=== PATIENT | female | born 1970 | race Caucasian/White ===

== ENCOUNTER 2020-06-09 18:12 | Emergency (ER) | payer MEDICAID ==
[~2020-06-09] VITALS: Ht 162.6 cm; Wt 58.0 kg
[2020-06-09 18:15] VITALS: BP 112/64
--- NOTE | 2020-06-09 18:34 | NUR ---
SEE TRIAGE NOTE. PT REPORTS OF CHRONIC "RED AND GREEN" VAG DISCHARGE. SEEN MULTIPLE TIMES AT [facility] FOR SAME. PT DENIES DYSURIA. PT ALSO REPORTS OF "SMOKING CIGARETTES, WEED, AND SPEED". PT WITH PRESSURED SPEECH, BEHAVIOR INAPPROPRIATE TO SITUATION BUT COOPERATIVE WITH CARE AT THIS TIME.
[2020-06-09] MEDS ORDERED: LORazepam 1MG TABLET ONE (18:43)
--- NOTE | 2020-06-09 18:51 | NUR ---
PT MEDICATED PER ERP ORDER FOR ITCHING AND ANXIETY. BP CUFF, PULSE OX IN PLACE. PT MOVED TO MINE [employer] BED, PELVIC SET UP BY SNOW REMOVAL SUPERVISOR.
--- NOTE | 2020-06-09 18:58 | NUR ---
Quintin au in [facility] - 06/09/20 at 1900 by PATRICIO REPORT RECEIVED FROM AYALA RENEE
[2020-06-09] MEDS ORDERED: LORazepam 1MG TABLET PO ONE (19:00)
--- NOTE | 2020-06-09 19:00 | NUR ---
REPORT RECIEVED FROM AYALA RENEE
[2020-06-09] MEDS ORDERED: FLUCONAZOLE 100 MG TABLET ONE (20:04)
--- NOTE | 2020-06-09 20:14 | NUR ---
PT REQUESTING DIFLUCAN TO BE GIVEN HERE, DR OCHOA OKAY WITH GIVING 150 MG DIFLUCAN PO NOW. VERBAL ORDER REPEATED.
[2020-06-09] MEDS ORDERED: FLUCONAZOLE 100 MG TABLET PO ONE (20:30)
== END 2020-06-09 20:20 | disposition home or self-care (01) ==
LOC: ED 20:05
DX: A60.04 Herpesviral vulvovaginitis (principal); N76.0 Acute vaginitis; F15.10 Other stimulant abuse, uncomplicated; Z72.9 Problem related to lifestyle, unspecified
CPT/HCPCS: 99284; Q0177

== ENCOUNTER 2020-09-28 16:12 | Emergency (ER) | payer MEDICAID ==
[~2020-09-28] VITALS: Ht 162.6 cm; Wt 58.8 kg
[2020-09-28 16:20] VITALS: BP 111/60
[2020-09-28 17:52] LABS: BASOPHILS % (AUTO) 1 % (0-1); EOSINOPHILS % (AUTO) 2 % (1-7); LYMPHOCYTES % (AUTO) 26 % (22-44); MEAN CORPUSCULAR HEMOGLOBIN 30.1 pg (27.0-34.8); MEAN CORPUSCULAR HGB CONC 33.3 g/dL (32.4-35.8); MEAN PLATELET VOLUME 7.9 fL (7.4-10.4); MONOCYTES % (AUTO) 7 % (2-9); NEUTROPHILS % (AUTO) 64 % (42-75); PLATELET COUNT 458 x10^3/uL (130-400); RED BLOOD COUNT 3.96 x10^6/uL (3.82-5.3); RED CELL DISTRIBUTION WIDTH 16.8 % (9.6-15.2)
[2020-09-28 18:04] LABS: ALBUMIN 3.5 g/dL (3.4-5.0); ANION GAP 4 mmol/L (5-15); CALCIUM 9.2 mg/dL (8.5-10.1); CHLORIDE 107 mmol/L (98-107); CREATININE 0.86 mg/dL (0.55-1.02)
--- NOTE | 2020-09-28 19:29 | NUR ---
pt presents to the ed with vaginal bleeding. pt states she has had 4 period like vaginal bleeding episodes this month. pt states she has had this bleeding since she had a bee stinger removed. pt resting on [place].
--- NOTE | 2020-09-28 20:10 | NUR ---
Patient given discharge instructions and they have confirmed that they understand the instructions. Patient ambulatory with steady gait.
== END 2020-09-28 20:51 | disposition home or self-care (01) ==
LOC: ED 19:45
DX: N93.8 Other specified abnormal uterine and vaginal bleeding (principal); D25.9 Leiomyoma of uterus, unspecified; F17.210 Nicotine dependence, cigarettes, uncomplicated
CPT/HCPCS: 36415; 76830; 80048; 82040; 84703; 85025; 99284; 99406

== ENCOUNTER 2020-11-25 21:16 | Emergency (ER) | payer MEDICAID ==
[~2020-11-25] VITALS: Ht 162.6 cm; Wt 59.3 kg
[2020-11-25] MEDS ORDERED: MAALOX/HYOSCYAMINE/LIDOCAINE 45 ML BTL PO ONE (21:30)
[2020-11-25] MEDS ORDERED: ONDANSETRON ODT 4 MG PO ONE (21:30)
[2020-11-25] MEDS ORDERED: FAMOTIDINE 20 MG TABLET PO ONE (21:30)
[2020-11-25] MEDS ORDERED: MAALOX/HYOSCYAMINE/LIDOCAINE 45 ML BTL ONE (21:44)
[2020-11-25] MEDS ORDERED: ONDANSETRON ODT 4 MG ONE (21:44)
[2020-11-25] MEDS ORDERED: FAMOTIDINE 20 MG TABLET ONE (21:44)
--- NOTE | 2020-11-25 21:45 | NUR ---
PT TO XRAY
--- NOTE | 2020-11-25 22:05 | NUR ---
BLOOD DRAWN AT WALKED TO LAB
--- NOTE | 2020-11-25 22:13 | NUR ---
PT AMBULATED TO RESTROOM AND BACK UNASSISTED.
[2020-11-25 22:16] LABS: BASOPHILS % (AUTO) 1 % (0-1); EOSINOPHILS % (AUTO) 1 % (1-7); LYMPHOCYTES % (AUTO) 27 % (22-44); MEAN CORPUSCULAR HEMOGLOBIN 29.2 pg (27.0-34.8); MEAN CORPUSCULAR HGB CONC 33.2 g/dL (32.4-35.8); MEAN PLATELET VOLUME 8.1 fL (7.4-10.4); MONOCYTES % (AUTO) 8 % (2-9); NEUTROPHILS % (AUTO) 62 % (42-75); PLATELET COUNT 422 x10^3/uL (130-400); RED BLOOD COUNT 4.29 x10^6/uL (3.82-5.3); RED CELL DISTRIBUTION WIDTH 17.1 % (9.6-15.2)
[2020-11-25 22:27] LABS: MICROSCOPIC NOT IND
[2020-11-25 22:54] LABS: ALBUMIN 3.9 g/dL (3.4-5.0); CALCIUM 9.1 mg/dL (8.5-10.1)
[2020-11-25 23:00] LABS: ANION GAP 6 mmol/L (5-15); CHLORIDE 106 mmol/L (98-107); CREATININE 0.67 mg/dL (0.55-1.02); TOTAL PROTEIN 7.4 g/dL (6.4-8.2); TROPONIN I < 0.015 ng/mL (0.000-0.045)
[2020-11-25 23:18] LABS: ALANINE AMINOTRANSFERASE 47 U/L (12-78); ALKALINE PHOSPHATASE 113 U/L (45-117); BILIRUBIN,TOTAL 0.3 mg/dL (0.2-1.0)
[2020-11-25 23:32] VITALS: BP 118/65
--- NOTE | 2020-11-25 23:32 | NUR ---
PT SLEEPING IN BED. WILL CONTINUE TO MONITOR.
== END 2020-11-26 00:16 | disposition home or self-care (01) ==
LOC: ED 21:26
DX: R10.84 Generalized abdominal pain (principal); F17.210 Nicotine dependence, cigarettes, uncomplicated
CPT/HCPCS: 36415; 74022; 74176; 80053; 81003; 83690; 84484; 85025; 93005; 99285; 99406; Q0162